=== PATIENT | male | born 1995 ===

== ENCOUNTER 2023-11-28 13:04 | Outpatient (CLI) | payer OTHER | END 2023-11-28 13:12 | disposition home or self-care (01) | LOC: RAD 13:04 | DX: S50.10XA Contusion of unspecified forearm, initial encounter (principal) ==

== ENCOUNTER 2024-01-06 14:38 | Outpatient (CLI) | payer OTHER | END 2024-01-06 14:47 | disposition home or self-care (01) | LOC: RAD 14:38 | PROVIDERS: ATTEND Orthopaedic Surgery | DX: S52.134A Nondisplaced fracture of neck of right radius, initial encounter for closed fracture (principal); S63.511A Sprain of carpal joint of right wrist, initial encounter ==